=== PATIENT | female | born 1955 | race Caucasian/White ===

== ENCOUNTER 2017-09-22 10:11 | Emergency (ER) | payer MEDICAID | END 2017-09-22 12:21 | disposition home or self-care (01) | LOC: D.ER 10:11 | DX: S01.511A Laceration without foreign body of lip, initial encounter (principal); W01.0XXA Fall on same level from slipping, tripping and stumbling without subsequent striking against object, initial encounter; Y93.89 Activity, other specified; Y92.019 Unspecified place in single-family (private) house as the place of occurrence of the external cause ==